=== PATIENT | female | born 1940 | race Caucasian/White ===

== ENCOUNTER 2020-10-27 11:52 | Outpatient (CLI) | payer MEDICARE, BC ==
[~2020-10-27] VITALS: Ht 162.6 cm; Wt 72.7 kg
[2020-10-27 12:59] VITALS: BP 154/58; Ht 162.6 cm; Wt 72.7 kg
== END 2020-10-27 13:19 | disposition home or self-care (01) ==
LOC: D.OPS 11:52
PROVIDERS: ATTEND Family Medicine
DX: M81.0 Age-related osteoporosis without current pathological fracture (principal)